=== PATIENT | female | born 1950 | race Caucasian/White ===

== ENCOUNTER → 2022-04-23 11:52 | Outpatient (CLI) | payer MEDICARE, OTHER, SELFPAY ==
--- NOTE | 2022-04-23 12:00 | DI.US.S_ITS ---
PROCEDURE: US RENAL COMPLETE INDICATIONS: Chronic kidney disease, stage 3 unspecified TECHNIQUE: Real-time scanning was performed of the kidneys and bladder, with image documentation. COMPARISON: None. FINDINGS: Kidneys: Kidneys are normal in size. Right kidney measures 10.3 cm long; left kidney measures 9.5 cm long. Right renal cortical thickness is is 0.8 cm; left renal cortical thickness is 0.9 cm. Renal cortex is echogenic. No hydronephrosis or nephrolithiasis. No suspicious solid mass lesions. 2.7 x 3.9 x 3.2 centimeter right renal cyst. Bladder: Pre-void bladder volume is 8.2 mL. Post-void residual is 5.6 mL. Pre-void images demonstrate no intraluminal masses or stones. On pre-void images, neither the right nor the left ureteral jets are noted with color Doppler interrogation. (Of note, ureteral jets may not be detectable in up to 25% of cases due to insufficient differences in specific gravity between ureteral and bladder urine). Miscellaneous: No free pelvic fluid. IMPRESSION: 1. Bilateral renal cortical thinning and increased cortical echogenicity compatible with medical renal disease. 2. No hydronephrosis Dictated by: Carla Aponte MD, PhD on 04/23/2022 at 14:31 Approved by: Carla Aponte MD, PhD on 04/23/2022 at 14:34
== END ==
PROVIDERS: PCP Family Medicine
DX: N18.30 Chronic kidney disease, stage 3 unspecified (principal)
CPT/HCPCS: 76770

== ENCOUNTER → 2023-08-03 10:01 | Outpatient (CLI) | payer MEDICARE, OTHER, SELFPAY ==
--- NOTE | 2023-08-03 10:05 | DI.RAD.S_ITS ---
Bone Density Report Name: MARYANN LA Age: 73 Sex: Female Ethnicity: White Date of : 1950 Indication: postmenopausal; screening for osteoporosis; Referring Provider: STACEY DIETRICH Study: Bone densitometry was performed. Exam Date: August 03, 2023 Accession number: [id number] Bone Density: Region BMD T-score Z-score Classification AP Spine(L1-L4) 0.886 -1.5 0.9 Osteopenia Femoral Neck (Left) 0.642 -1.9 0.2 Osteopenia Total Hip (Left) 0.785 -1.3 0.5 Osteopenia Femoral Neck (Right) 0.623 -2.0 0.0 Osteopenia Total Hip (Right) 0.773 -1.4 0.4 Osteopenia Total Hip Mean 0.779 -1.4 0.5 Osteopenia World Health Organization criteria for BMD impression classify patients as: Normal (T-score at or above -1.0), Osteopenia (T-score between -1.0 and -2.5), or Osteoporosis (T-score at or below -2.5). 10-year Fracture Risk(1): Major Osteoporotic Fracture 13% Hip Fracture 3.2% Reported Risk Factors: [place] (), Neck BMD=0.623, BMI=27.1 (1) FRAX(R) Version 3.08. Fracture probability calculated for an untreated patient. Fracture probability may be lower if the patient has received treatment. Impression: The patient has low bone mass, based on the Right Femoral Neck T-score. The patient has an estimated ten-year risk of hip fracture of 3.2% and an estimated ten-year risk of major fracture of 13%, based on the WHO FRAX algorithm. Discussion: BONE DENSITY IS LOW AT ONE OR MORE SKELETAL SITES. THE PATIENT'S BMD AND CLINICAL RISK FACTORS CONTRIBUTE TO THIS PATIENT'S INCREASED RISK OF FRACTURE. This patient's lowest T-score is low at one or more skeletal sites. It meets the World Health Organization's (WHO) criteria for low bone mass (T-score between -1.0 and -2.5). The patient's 10-year risk of hip fracture as calculated by FRAX exceeds the threshold where pharmacological therapy is recommended by the National Osteoporosis Foundation (NOF). However, all treatment decisions require clinical judgment and consideration of individual patient factors, including patient preferences, comorbidities, previous drug use, risk factors not captured in the FRAX model (e.g., frailty, falls, vitamin D deficiency, increased bone turnover, interval significant decline in bone density) and possible under or overestimation of fracture risk by FRAX. The patient should follow a healthful lifestyle (good nutrition with adequate calcium and vitamin D, and appropriate weight-bearing exercise). Follow-Up: Consider a repeat BMD and Vertebral Fracture Assessment (VFA) exam in 2 years or sooner if medically necessary, to reassess this patient's status. Reported by: ENDY GOEL M.D. on 08/03/2023 10:40:00 AM.
--- NOTE | 2023-08-03 10:05 | DI.MG.S_ITS ---
UNILATERAL RIGHT DIGITAL SCREENING MAMMOGRAM 3D/2D WITH CAD POST MASTECTOMY: 08/03/2023 CLINICAL: Routine screening. Breast cancer. Family history of breast cancer. Comparison is made to exam dated: 07/25/2019 mammogram - Outside facility. The right breast is heterogeneously dense, which may obscure small masses (category c / 51-75% glandular tissue). Current study was also evaluated with a Computer Aided Detection (CAD) system. There are benign calcifications in the right breast. No significant masses, calcifications, or other findings are seen in the breast. There has been no significant interval change. IMPRESSION: BENIGN There is no mammographic evidence of malignancy. A 1 year screening mammogram is recommended. This exam was interpreted at Station ID: [id number]. NOTE: For mammograms, a report in lay terms will be sent to the patient. Approximately 15% of breast malignancies will not be visualized mammographically. In the management of a palpable breast mass, a negative mammogram must not discourage biopsy of a clinically suspicious lesion. Electronically Signed By: Dylan [email or web address]:08/05/2023 13:04:23 letter sent: Normal Exam ACR BI-RADS Category 2: Benign Finding(s) 3342F
--- NOTE | 2023-08-03 10:06 | DI.CT.S_ITS ---
PROCEDURE: CT LUNG LOW DOSE SCREENING INDICATIONS: PRIOR SMOKER TECHNIQUE: Noncontrast 2.0-2.5 mm thick sections acquired from the pulmonary apices to the posterior costophrenic angles. 7 mm thick axial MIP, and 5 mm coronal and sagittal reformats were then acquired. A low radiation dose technique was utilized. COMPARISON: None. FINDINGS: Image quality: Diagnostic, given the low radiation dose technique. Lungs and pleura: Ground-glass in the left upper lobe measuring 2.3 x 1.1 cm (series 3, image 124). Additional smaller ground-glass in the left upper lobe measuring 0.9 cm (series 3, image 104). Right fissure solid pulmonary nodule versus lymph node measuring 2 mm (series 3 image 140 7). Linear scarring in the lingula and bilateral lower lobes. Scattered subcentimeter calcified granulomas. Mediastinum: Heart size is normal. No pericardial effusion. No mediastinal adenopathy by size criteria. Coronary vessel calcifications. Calcified mediastinal and hilar lymph nodes, likely sequela of prior granulomatous infection. Thoracic aorta and central pulmonary arteries are normal in size. Calcification of the thoracic aorta and origins of the great vessels. Esophagus is normal in caliber. No hiatal hernia. Bones and chest wall: No suspicious bony lesions. No vertebral body compression fractures. Mild multilevel degenerative changes of the spine. No axillary or supraclavicular adenopathy by size criteria. Thyroid gland is unremarkable. Left mastectomy. Abdomen: Limited noncontrast images of the upper abdomen demonstrate no acute findings. Sub cm scattered calcified granulomas in the liver and spleen. IMPRESSION: 1. Ground-glass in the left upper lobe measuring up to 2.3 x 1.1 cm. 2. Coronary vessel calcifications. LUNG-RADS 3; recommend six-month follow-up CT. Dictated by: Rosaura Moses M.D. on 08/03/2023 at 12:57 Approved by: Rosaura Moses M.D. on 08/03/2023 at 13:21
== END ==
PROVIDERS: PCP Family Medicine; Referring Provider Family Medicine; Visit Provider Family Medicine
DX: M81.0 Age-related osteoporosis without current pathological fracture (principal); Z12.31 Encounter for screening mammogram for malignant neoplasm of breast; Z12.2 Encounter for screening for malignant neoplasm of respiratory organs; I25.10 Atherosclerotic heart disease of native coronary artery without angina pectoris; Z80.3 Family history of malignant neoplasm of breast; Z85.3 Personal history of malignant neoplasm of breast; M85.89 Other specified disorders of bone density and structure, multiple sites
CPT/HCPCS: 71271; 77063; 77067; 77080

== ENCOUNTER → 2024-02-26 12:06 | Outpatient (CLI) | payer MEDICARE, OTHER, SELFPAY ==
--- NOTE | 2024-02-26 | DI.CT.S_ITS ---
PROCEDURE: CT CHEST WO CON INDICATIONS: Abnormal findings on diagnostic imaging TECHNIQUE: Noncontrast 2.0-2.5 mm thick sections acquired from the pulmonary apices to the posterior costophrenic angles. 7 mm thick axial MIP, and 5 mm coronal and sagittal reformats were then acquired. For radiation dose reduction, the following was used: automated exposure control, adjustment of mA and/or kV according to patient size. COMPARISON: [facility], CT, CT LUNG LOW DOSE SCREENING, 08/03/2023, 11:30. FINDINGS: Image quality: Diagnostic. Lower Neck: No enlarged lymph nodes. Thyroid: No thyroid nodules which require sonographic follow up, per consensus guidelines. Axillae: No enlarged lymph nodes. Chest Wall: Left mastectomy. Bones: Degenerative changes of the spine. Decreased osseous mineralization. Lungs and Pleura: No pneumothorax or pleural effusions. Similar extent of ground-glass within left upper lobe with decreased density compared to prior, measuring approximately 2.2 x 1.4 cm. Additional smaller focus of ground-glass left upper lobe posteriorly measuring less than 1 cm (3/93) is stable. Nodule in the right upper lobe measuring 4 mm (3 is 143) is stable. Linear atelectasis versus scarring within the lingula and bilateral lower lobe is stable. Scattered calcified granulomas. Heart: Heart size is normal. Moderate coronary artery calcifications. No pericardial effusion. Thoracic Vessels: The aorta and pulmonary arteries demonstrate normal size. Atherosclerotic vascular calcifications. Mediastinum and [place]: No enlarged lymph nodes. Esophagus: No wall thickening. Small hiatal hernia. Upper Abdomen: Multiple calcifications throughout the spleen and liver. Possible gallstones in the partially visualized gallbladder. IMPRESSION: Similar size of ground-glass nodule in the left upper lobe measuring approximately 2.2 cm, mildly decreased in density compared to prior. LUNG-RADS 2; recommend 12 month follow-up chest CT. Dictated by: Richard Morgan M.D. on 02/26/2024 at 15:07 Approved by: Richard Morgan M.D. on 02/26/2024 at 15:18
== END ==
LOC: CT 12:08
PROVIDERS: PCP Family Medicine; Referring Provider Family Medicine; Visit Provider Family Medicine
DX: R93.89 Abnormal findings on diagnostic imaging of other specified body structures (principal); R91.1 Solitary pulmonary nodule; I25.10 Atherosclerotic heart disease of native coronary artery without angina pectoris; K44.9 Diaphragmatic hernia without obstruction or gangrene
CPT/HCPCS: 71250